=== PATIENT | female | born 1980 | race African-American/Black ===

== ENCOUNTER 2016-11-30 19:18 | Emergency (ER) | payer OTHER ==
[~2016-11-30] VITALS: Ht 182.9 cm; Wt 158.8 kg
[2016-11-30 19:29] VITALS: BP_SYST 152
--- NOTE | 2016-11-30 20:24 | NUR ---
Patient to [facility] for evaluation. Report given to Macy BAUTISTA
--- NOTE | 2016-11-30 20:35 | NUR ---
Patient to ER C/O left foot & ankle pain 10/25. Patient states pain was sudden this evening, after getting out of her car, denies injury, no bruising or deformity noted. AAOx4, unlabored breathing, no signs of acute distress.
--- NOTE | 2016-11-30 20:43 | NUR ---
ER MD Argueta at bedside evaluating the patient
--- NOTE | 2016-11-30 21:46 | NUR ---
Patient moved to bed 7
[2016-11-30] MEDS ORDERED: IBUPROFEN 600 MG TABLET PO ONE (22:15)
--- NOTE | 2016-11-30 22:32 | NUR ---
Patient reports pain 0/10 15 minutes after administration of motrin. No adverse reactions noted. Will continue to monitor.
[2016-11-30 22:41] VITALS: BP_SYST 131
--- NOTE | 2016-11-30 22:41 | NUR ---
Patient given written and verbal discharge instructions and verbalizes understanding. ER MD Argueta discussed with patient the results and treatment provided. Patient in stable condition. ID arm band removed. Patient educated on pain management and to follow up with PMD. Pain Scale 0/10. Opportunity for questions provided and answered.
== END 2016-11-30 22:41 | disposition home or self-care (01) ==
LOC: SED 19:18
DX: S93.492A Sprain of other ligament of left ankle, initial encounter (principal); I10 Essential (primary) hypertension; X58.XXXA Exposure to other specified factors, initial encounter; Y93.89 Activity, other specified; Y92.89 Other specified places as the place of occurrence of the external cause; Y99.8 Other external cause status
CPT/HCPCS: 99284